=== PATIENT | female | born 1970 | race African-American/Black ===

== ENCOUNTER 2017-07-30 18:05 | Emergency (ER) | payer MEDICAID ==
[2017-07-30 22:19] LABS: Hematocrit 30 % (35-47); Hemoglobin 9.2 g/dl (12.0-16.0); Mean Corpuscular HGB Conc 30 g/dl (31-36); Mean Corpuscular Hemoglobin 22 pg (27-31); Mean Corpuscular Volume 73 fL (80-97); Mean Platelet Volume 7 um3 (7.4-10.4); Red Blood Count 4.14 10^6/ul (4.0-5.4); Red Cell Distribution Width 22 % (10.5-15); White Blood Count 10.7 10^3/ul (3.5-10.8)
[2017-07-30 22:23] LABS: Comments Flag Yes
[2017-07-30 22:24] LABS: Add Diff/Slide Review? Slide Review Added
[2017-07-30 22:34] LABS: Albumin 3.7 g/dL (3.2-5.2); BUN/Creatinine Ratio 9.8 (8-20); Calcium 8.9 mg/dL (8.6-10.3); EGFR African American 83.8 (>60); EGFR Non-African American 65.2 (>60); Globulin 3.4 g/dL (2-4); Potassium 3.6 mmol/L (3.5-5.0); Total Bilirubin 0.5 mg/dL (0.2-1.0); Total Protein 7.1 g/dL (6.4-8.9)
[2017-07-30] MEDS ORDERED: Albuterol/Ipratropium NEB.SOL* Albuterol 2.5 MG/Ipratropium 0.5 MG 3 ML INH ONE (23:13)
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
[2017-07-31 00:49] VITALS: BP 156/95
--- NOTE | 2017-07-31 07:40 | RAD ---
HISTORY: Wheezing, history of apnea COMPARISONS: None VIEWS: 4: Frontal dual-energy and lateral views of the chest. FINDINGS: CARDIOMEDIASTINAL SILHOUETTE: The cardiomediastinal silhouette is normal. RONDA: The ronda are normal. PLEURA: The costophrenic angles are sharp. No pleural abnormalities are noted. LUNG PARENCHYMA: The lungs are clear. ABDOMEN: The upper abdomen is clear. There is no subphrenic gas. BONES AND SOFT TISSUES: Degenerative changes are noted of the spine OTHER: None. IMPRESSION: NO ACTIVE CARDIOPULMONARY DISEASE.
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
== END 2017-07-31 | disposition home or self-care (01) ==
LOC: ED 18:05
DX: D64.9 Anemia, unspecified (principal); R60.0 Localized edema; G47.30 Sleep apnea, unspecified; R06.2 Wheezing; R51 Headache
CPT/HCPCS: 36415; 70450; 71020; 80053; 83605; 83880; 84484; 85025; 86850; 86900; 86901; 94640; 99282; A9270-GY